=== PATIENT | female | born 1995 | race Caucasian/White ===

== ENCOUNTER 2020-09-02 22:00 | Inpatient (IN) | payer MEDICAID ==
[~2020-09-02] VITALS: Ht 170.2 cm; Wt 94.8 kg
[~2020-09-02 22:00] MED LIST: PNV1TABL17 PO
[2020-09-02] MEDS ORDERED: EPHEDRINE SULFATE 50 MG/ML AMPULE IVP PRN (22:45)
[2020-09-02] MEDS ORDERED: MEPERIDINE-PF 50 MG/ML SYG IVP PRN (22:45)
[2020-09-02] MEDS ORDERED: PROMETHAZINE HCL 25 MG/ML 1ML AMPULE IM PRN (22:45)
[2020-09-02] MEDS ORDERED: LACTATED RINGERS 500 ML 500 ML IV PRN (22:45)
[2020-09-02] MEDS ORDERED: AMPICILLIN 2GM+NS 100ML 100 ML IV SCH (22:45)
[2020-09-02] MEDS ORDERED: NALOXONE HCL 0.4 MG/1 ML ML IV PRN (22:45)
[2020-09-02] MEDS ORDERED: ROPIVACAINE 0.2% 100ML VIAL 100 ML EP SCH (22:45)
[2020-09-02 22:59] LABS: APPEARANCE,URINE Turbid (CLEAR); BILIRUBIN,URINE Negative (NEGATIVE); COLOR,URINE Yellow (YELLOW); GLUCOSE, URINE (UA) Negative (NEGATIVE); KETONES,URINE Negative (NEGATIVE); LEUKOCYTE ESTERASE ,URINE Trace (NEGATIVE); NITRATE,URINE Negative (NEGATIVE); OCCULT BLOOD,URINE Small (NEGATIVE); PROTEIN,URINE Negative (NEGATIVE); UROBILINOGEN,URINE 0.2 mg/dL (0.2-1.0)
[2020-09-02 23:19] LABS: WBC,URINE 0-1 /HPF (0-1)
[2020-09-02 23:20] LABS: AMORPHOUS SEDIMENT,UR Moderate /LPF (None Seen); BACTERIA,URINE Few /HPF (None Seen)
[2020-09-02 23:23] LABS: AMPHET/METH SCREEN,URINE NEGATIVE (NEGATIVE); BARBITURATE SCREEN, URINE NEGATIVE (NEGATIVE); BENZODIAZEPINES SCREEN,URINE NEGATIVE (NEGATIVE); CANNABINOID SCREEN,URINE NEGATIVE (NEGATIVE); COCAINE SCREEN,URINE NEGATIVE (NEGATIVE); OPIATE SCREEN,URINE NEGATIVE (NEGATIVE); PHENCYCLIDINE SCREEN,URINE NEGATIVE (NEGATIVE)
[2020-09-02 23:42] LABS: HEMATOCRIT 29.9 % (36-48); MEAN CORPUSCULAR HEMOGLOBIN 31.8 pg (27.0-33.0); MEAN CORPUSCULAR HGB CONC 34.4 g/dL (32.0-36.0); MEAN CORPUSCULAR VOLUME 92.3 fL (79-99); RED BLOOD CELL COUNT(AUTO) 3.24 MIL/uL (4.00-5.50); WHITE BLOOD COUNT (AUTO) 10.5 K/uL (4.8-10.8)
[2020-09-03 00:18] VITALS: BP 132/68
[2020-09-03] MEDS: LACTATED RINGERS 1000ML 1,000 ML IV PRN ×2 (03:02→13:05)
[2020-09-03] MEDS ORDERED: OXYTOCIN-LR 20 UNITS/1000 ML 1,000 ML IV SCH ×2 (04:00→15:30)
[2020-09-03] MEDS: AMPICILLIN 1GM+NS 50ML 50 ML IV SCH ×3 (04:01→13:05)
[2020-09-03] MEDS ORDERED: FENTANYL CITRATE PF 50 MCG/1 ML 2ML VIAL ONE (10:08)
[2020-09-03] MEDS ORDERED: METHYLERGONOVINE MALEATE 0.2 MG/1 ML ML ONE (15:23)
[2020-09-03] MEDS ORDERED: METHYLERGONOVINE MALEATE 0.2 MG/1 ML ML IM SCH (15:25)
[2020-09-03] MEDS ORDERED: WITCH HAZEL 1 PAD TP PRN (15:30)
[2020-09-03] MEDS ORDERED: DIPH,PERTUSS(ACELL),TET VAC/PF 0.5 ML VIAL IM PRN (15:30)
[2020-09-03] MEDS ORDERED: ACETAMINOPHEN 325 MG TAB PO PRN (15:30)
[2020-09-03] MEDS ORDERED: MEASLES/MUMPS/RUBELLA VACCINE, LIVE 0.5 ML/VIAL SQ PRN (15:30)
[2020-09-03] MEDS ORDERED: BENZOCAINE/LANOLIN/ALOE VERA 60 ML AEROSOL TP PRN (15:30)
[2020-09-03] MEDS ORDERED: LANOLIN 30GM OINTMENT TP PRN (15:30)
[2020-09-03] MEDS: ACETAMINOPHEN WITH CODEINE 1 TAB TAB PO PRN (17:02)
[2020-09-03 18:07] VITALS: BP 115/58
[2020-09-03] MEDS: IBUPROFEN 600 MG TABLET PO PRN (18:21)
[2020-09-03] MEDS: DOCUSATE SODIUM 100 MG CAP PO SCH (21:14)
[2020-09-04 00:01] VITALS: BP 123/66
[2020-09-04 04:20] VITALS: BP 110/52
[2020-09-04 06:13] LABS: HEPATITIS Bs ANTIGEN SCREEN P Negative (Negative)
[2020-09-04] MEDS: ACETAMINOPHEN WITH CODEINE 1 TAB TAB PO PRN ×2 (06:19)
[2020-09-04 06:30] LABS: HEMATOCRIT 30.5 % (36-48); MEAN CORPUSCULAR HEMOGLOBIN 31.2 pg (27.0-33.0); MEAN CORPUSCULAR HGB CONC 32.8 g/dL (32.0-36.0); RED BLOOD CELL COUNT(AUTO) 3.21 MIL/uL (4.00-5.50); WHITE BLOOD COUNT (AUTO) 11.2 K/uL (4.8-10.8)
[2020-09-04 06:59] VITALS: BP 112/60
[2020-09-04] MEDS: DOCUSATE SODIUM 100 MG CAP PO SCH (08:29)
[2020-09-04] MEDS: IBUPROFEN 600 MG TABLET PO PRN (08:36)
[2020-09-04 10:56] VITALS: BP 125/69
[2020-09-04 15:50] VITALS: BP 127/65
== END 2020-09-04 15:55 | disposition home or self-care (01) | DRG 560 ==
LOC: LDH 22:00 → WSH 09-03 18:50
PROVIDERS: ADMIT Obstetrics & Gynecology; ATTEND Obstetrics & Gynecology
PROC: 10E0XZZ Delivery of Products of Conception, External Approach (ICD-10-PCS; principal; 2020-09-03)
PROC: 3E0234Z Introduction of Serum, Toxoid and Vaccine into Muscle, Percutaneous Approach (ICD-10-PCS; 2020-09-03)
PROC: 10907ZC Drainage of Amniotic Fluid, Therapeutic from Products of Conception, Via Natural or Artificial Opening (ICD-10-PCS; 2020-09-03)
PROC: 3E033VJ Introduction of Other Hormone into Peripheral Vein, Percutaneous Approach (ICD-10-PCS; 2020-09-03)
PROC: 3E0134Z Introduction of Serum, Toxoid and Vaccine into Subcutaneous Tissue, Percutaneous Approach (ICD-10-PCS; 2020-09-03)
DX: O71.82 Other specified trauma to perineum and vulva (principal); Z3A.39 39 weeks gestation of pregnancy; Z37.0 Single live birth; Z23 Encounter for immunization
CPT/HCPCS: 36415; 80305; 81001; 85027; 86592; 86850; 86900; 86901; 87340; 90715; A4314; G0378; J0290; J2175; J2210; J2550; J2590; J2795; J3010; J7120